=== PATIENT | female | born 1990 | race Two or more races ===

== ENCOUNTER 2016-11-18 01:04 | Emergency (ER) | payer OTHER ==
[2016-11-18] MEDS ORDERED: MAALOX/LIDO2%VISC/SIMETHICONE 40 ML BOT ONE (01:52)
[2016-11-18 02:01] LABS: SPECIFIC GRAVITY 1.025 (1.001-1.030); URINE BILIRUBIN NEGATIVE (NEGATIVE); URINE BLOOD NEGATIVE (NEGATIVE); URINE GLUCOSE (UA) NEGATIVE (NEGATIVE); URINE LEUKOCYTE ESTERASE TRACE (NEGATIVE); URINE NITRITE NEGATIVE (NEGATIVE); URINE PROTEIN NEGATIVE (NEGATIVE); URINE UROBILINOGEN NORMAL (0-1 mg/dl)
[2016-11-18 02:02] LABS: ABSOLUTE NEUTROPHIL COUNT 10.9 K/mm3 (1.8-7.7); BASO % 0.2 % (0.2-1.0); EOS # 0.1 (0.0-0.5); EOS % 0.4 % (0.9-2.9); HEMATOCRIT 32.4 % (37.0-47.0); HEMOGLOBIN 9.4 gm/l (12.0-16.0); IMM NEUT # 0.1 K/mm3 (0-0.2); IMM NEUT% 0.8 % (0-1); LYMPH # 2.3 (1.0-4.8); LYMPH % 15.9 % (15-45); MEAN CELL VOLUME 67.1 fl (81.0-99.0); MEAN CORPUSCULAR HEMOGLOBIN 19.5 pg (27.0-31.0); MEAN PLATELET VOLUME 9.5 fl (7.4-10.4); MONO # 0.9 (0.0-0.8); MONO % 6.2 % (4-12); NEUT % 76.5 % (43-75); PLATELET COUNT 429 K/mm3 (130-400)
[2016-11-18 02:04] LABS: HCG,QUALITATIVE URINE NEGATIVE
[2016-11-18 02:05] LABS: URINE APPEARANCE CLEAR; URINE COLOR YELLOW
[2016-11-18 02:12] LABS: URINE BACTERIA FEW; URINE EPITHELIAL CELLS MODERATE /hpf; URINE RBC 0 /hpf; URINE WBC 0-1 /hpf
[2016-11-18 02:49] LABS: ANISOCYTOSIS 1+; PLATELET ESTIMATE NORMAL (NORMAL)
[2016-11-18 02:57] LABS: CALCIUM 9.4 mg/dL (8.6-10.3)
--- NOTE | 2016-11-18 07:46 | US ---
ABDOMINAL-LIMITED: 11/18/2016 2:02 AM CLINICAL HISTORY: Right upper quadrant and epigastric pain for 6 hours. Patient last ate at 2000 hours. STUDY: Limited right upper quadrant ultrasound COMPARISON: CT abdomen and pelvis 06/12/2006 FINDINGS: Gallbladder: Wall thickness: Normal Cholelithiasis: Mobile small stones and sludge are present. Pericholecystic Fluid: none Sonographic Waters's Sign: negative Bile ducts: Common bile duct measures 1 mm. Limited visualized Liver and RUQ structures: Focal fatty sparing is noted in the gallbladder fossa. IMPRESSION: Mobile small stones and sludge are present without sonographic findings of acute cholecystitis. Fatty sparing is noted in the gallbladder fossa. Preliminary report was provided by [email or web address] at approximately 0428 hours on 11/18/2016.
== END 2016-11-18 04:55 | disposition home or self-care (01) ==
LOC: ED 01:04
DX: K80.20 Calculus of gallbladder without cholecystitis without obstruction (principal); R10.13 Epigastric pain; E10.9 Type 1 diabetes mellitus without complications; Z79.4 Long term (current) use of insulin
CPT/HCPCS: 83690; 81025; 85025; 80053; 81001; 76705; 99284 ×2; 93005; A9270